=== PATIENT | male | born 2000 | race Native Hawaiian/Other Pacific Islander ===

== ENCOUNTER 2021-01-21 13:54 | Emergency (ER) | payer OTHER ==
[~2021-01-21] VITALS: Ht 177.8 cm; Wt 79.4 kg
[2021-01-21 15:42] VITALS: BP 119/74; TEMP 98.6
== END 2021-01-21 15:43 | disposition home or self-care (01) ==
LOC: ED 13:54
DX: S16.1XXA Strain of muscle, fascia and tendon at neck level, initial encounter (principal); V49.50XA Passenger injured in collision with unspecified motor vehicles in traffic accident, initial encounter; Y92.89 Other specified places as the place of occurrence of the external cause
CPT/HCPCS: 99283